=== PATIENT | female | born 1935 | race Caucasian/White ===

== ENCOUNTER → 2017-04-25 | Outpatient (CLI) | payer OTHER, MEDICARE ==
[~2017-04-25] MED LIST: AMARYL4 MG PO; AUGMENTIN 500-1 EACH PO; CARDIZEM CD240 MG PO; HYDROCODON-ACE1 EAC7 PO; KLOR-CON 1010 MEQ PO; LASIX 40 MG TAB40 M2 PO; LISINOPRIL20 MG PO; METFORMIN HCL500 MG PO; ONGLYZA5 MG PO; PREDNISONE 10 M10 MG PO; TUMS PO; VITAMIN D2000 UNIT PO; ZOCOR20 MG PO
[2017-04-25 09:35] LABS: HEMATOCRIT 37.6 % (37.0-47.0); HEMOGLOBIN 12.5 gm/dL (12.0-15.0); MCH 28.3 pg (26.0-34.0); MCHC 33.2 g/dL (28.0-37.0); MCV 85.2 fL (80.0-100.0); MPV 8.9 fl. (7.2-11.1); RBC 4.42 mil/uL (4.20-5.00); RDW-CV 15.5 % (10.5-14.5); WBC 7.7 thou/uL (4.0-11.0)
[2017-04-25 09:56] LABS: ALBUMIN 3.8 g/dL (3.4-5.0); ALKALINE PHOSPHATASE 77 U/L (46-116); ANION GAP 8 mmol/L (7-16); BUN 25 mg/dL (7-18); CALCIUM 10.2 mg/dL (8.5-10.1); CHLORIDE 103 mmol/L (98-107); CHOLESTEROL 148 mg/dL (<200); CO2 30 mmol/L (21-32); CREATININE 1.4 mg/dL (0.6-1.3); GLUCOSE 151 mg/dL (70-99); HDL CHOLESTEROL 35 mg/dL (>40); LDL CHOLESTEROL 74 mg/dL (<100); POTASSIUM 4.3 mmol/L (3.5-5.1); SERUM ASSESSMENT Clear; SGOT 19 U/L (15-37); SGPT 26 U/L (30-65); SODIUM 141 mmol/L (136-145); TC:HDL 4.2 Ratio (Not establshd); TOTAL BILIRUBIN 0.3 mg/dL (<0.1-1.0); TOTAL PROTEIN 7.1 g/dL (6.4-8.2); TRIGLYCERIDE 195 mg/dL (<150); VLDL 39 mg/dL (<40)
[2017-04-25 21:11] LABS: GLYCOHEMOGLOBIN (HGB A1C) 7.1 % (4.8-5.6)
== END ==
LOC: M.LAB 08:46
PROVIDERS: General Practice
DX: E04.2 Nontoxic multinodular goiter (principal); I10 Essential (primary) hypertension; E11.9 Type 2 diabetes mellitus without complications; E55.9 Vitamin D deficiency, unspecified

== ENCOUNTER → 2017-07-23 | Outpatient (CLI) | payer OTHER, MEDICARE | LOC: M.ULTRA 07:44 | DX: N83.202 Unspecified ovarian cyst, left side (principal); R93.8 Abnormal findings on diagnostic imaging of other specified body structures; Z91.041 Radiographic dye allergy status ==

== ENCOUNTER → 2018-01-21 | Outpatient (CLI) | payer OTHER, MEDICARE | LOC: M.RAD 09:18 | DX: C25.9 Malignant neoplasm of pancreas, unspecified (principal) ==

== ENCOUNTER → 2018-09-30 | Outpatient (CLI) | payer OTHER, MEDICARE | LOC: M.ULTRA 11:02 | DX: N94.9 Unspecified condition associated with female genital organs and menstrual cycle (principal); R93.89 Abnormal findings on diagnostic imaging of other specified body structures ==

== ENCOUNTER → 2019-02-09 | Outpatient (CLI) | payer OTHER, MEDICARE | LOC: M.LAB 08:07 | DX: R91.8 Other nonspecific abnormal finding of lung field (principal); C25.9 Malignant neoplasm of pancreas, unspecified; Z91.041 Radiographic dye allergy status ==

== ENCOUNTER 2020-08-23 07:51 | Emergency (ER) | payer OTHER, MEDICARE ==
[~2020-08-23] VITALS: Ht 165.1 cm; Wt 117.0 kg
[2020-08-23] MEDS ORDERED: BACTRIM DS TAB1 EACH PO (08:17)
[2020-08-23] MEDS ORDERED: CEPHALEXIN500 MG PO (08:17)
[2020-08-23 08:37] VITALS: BP 135/87
== END 2020-08-23 08:39 | disposition home or self-care (01) ==
LOC: M.ERS 07:51
DX: L03.116 Cellulitis of left lower limb (principal); I87.8 Other specified disorders of veins; I10 Essential (primary) hypertension; K21.9 Gastro-esophageal reflux disease without esophagitis; E66.9 Obesity, unspecified; Z68.41 Body mass index [BMI] 40.0-44.9, adult; Z88.1 Allergy status to other antibiotic agents; Z91.041 Radiographic dye allergy status; Z85.07 Personal history of malignant neoplasm of pancreas

== ENCOUNTER → 2020-09-09 | Outpatient (CLI) | payer OTHER, MEDICARE ==
[~2020-09-09] MED LIST changes: +BACTRIM DS TAB1 EACH PO; +CEPHALEXIN500 MG PO
== END ==
LOC: M.ULTRA 10:21
PROVIDERS: ATTEND Radiology Radiation Oncology
DX: N83.8 Other noninflammatory disorders of ovary, fallopian tube and broad ligament (principal); N83.292 Other ovarian cyst, left side; R93.89 Abnormal findings on diagnostic imaging of other specified body structures

== ENCOUNTER → 2020-10-21 | Outpatient (CLI) | payer OTHER, MEDICARE | LOC: M.ULTRA 10:20 | PROVIDERS: ATTEND Urology | DX: N13.30 Unspecified hydronephrosis (principal) ==

== ENCOUNTER → 2020-11-09 | Outpatient (CLI) | payer OTHER, MEDICARE | LOC: M.CT 09:00 | PROVIDERS: ATTEND Urology | DX: N20.0 Calculus of kidney (principal); R91.1 Solitary pulmonary nodule; E27.8 Other specified disorders of adrenal gland; K80.10 Calculus of gallbladder with chronic cholecystitis without obstruction; N85.00 Endometrial hyperplasia, unspecified; N83.8 Other noninflammatory disorders of ovary, fallopian tube and broad ligament ==

== ENCOUNTER 2021-03-03 08:15 | Emergency (ER) | payer OTHER, MEDICARE ==
[~2021-03-03] VITALS: Ht 165.1 cm; Wt 116.1 kg
[2021-03-03 09:03] LABS: ABSOLUTE LYMPHOCYTES 0.4 thou/uL (0.8-5.3); ABSOLUTE NEUTROPHILS 6.3 thou/uL (1.6-8.1); BASOPHILS 0.6 %; EOSINOPHILS 0.3 %; HEMATOCRIT 37.4 % (37.0-47.0); HEMOGLOBIN 12.2 gm/dL (12.0-15.0); LYMPHOCYTES 5.5 %; MCHC 32.6 g/dL (28.0-37.0); MCV 82.7 fL (80.0-100.0); MONOCYTES 13.3 %; MPV 8.5 fl. (7.2-11.1); NUCLEATED RBCS 0 /100WBC; PLATELET COUNT* 251 thou/uL (150-400); POLYS 80.3 %; RBC 4.52 mil/uL (4.20-5.00); RDW-CV 18.5 % (10.5-14.5); WBC 7.8 thou/uL (4.0-11.0)
[2021-03-03 09:13] LABS: CALCIUM 9.8 mg/dL (8.5-10.1); CREATININE 1.6 mg/dL (0.6-1.3); POTASSIUM 4.7 mmol/L (3.5-5.1)
[2021-03-03 09:24] LABS: ALBUMIN 3.2 g/dL (3.4-5.0); TOTAL BILIRUBIN 0.4 mg/dL (<0.1-1.0); TOTAL PROTEIN 6.5 g/dL (6.4-8.2)
[2021-03-03] MEDS ORDERED: AMBIEN 5 MG TABL5 M1 PO (10:28)
[2021-03-03 10:36] VITALS: BP 121/70
--- NOTE | 2021-03-03 10:51 | EKG ---
[place] [address] ELECTROCARDIOGRAM REPORT Name: DORIAN GUARDADO Room: [facility]#: [id number] Admission: 03/03/21 Attend Phys: Discharge: 03/03/21 Date of : 39 Date of Service: 03/03/21 0832 Report #: [id number] THIS REPORT FOR: //name// [facility] ED Test Date: 2021-03-03 Test Time: 08:32:30 Pat Name: DORIAN GUARDADO Department: Room: Gender: F Party Planner: : 1935 Requested By: Pankaj Holt Order Number: [id number] MD: Christopher Black Measurements Intervals [place] Rate: 146 P: 107 AK: 98 QRS: 34 QRSD: 87 T: 249 QT: 273 QTc: 426 Interpretive Statements Supraventricular tachycardia Repolarization abnormality, prob rate related Compared to ECG 11/19/2016 08:47:15 Early repolarization now present Sinus tachycardia no longer present Electronically Signed On 03-03-2021 10:51:15 [employer] by Christopher Black [email or web address] <ELECTRONICALLY SIGNED> By: Christopher Black MD, FAC 03/03/21 1051 0832 Christopher Black MD, [facility] /EPI
== END 2021-03-03 10:36 | disposition home or self-care (01) ==
LOC: M.ERS 08:15
PROVIDERS: Family Medicine
DX: R53.83 Other fatigue (principal); R00.0 Tachycardia, unspecified; I10 Essential (primary) hypertension; K21.9 Gastro-esophageal reflux disease without esophagitis; E66.9 Obesity, unspecified; Z79.899 Other long term (current) drug therapy; Z88.0 Allergy status to penicillin; Z91.041 Radiographic dye allergy status

== ENCOUNTER 2021-03-26 08:52 | Emergency (ER) | payer OTHER, MEDICARE ==
[~2021-03-26] VITALS: Ht 165.1 cm; Wt 117.9 kg
[~2021-03-26 08:52] MED LIST changes: +AMBIEN 5 MG TABL5 M1 PO
[2021-03-26] MEDS ORDERED: ZESTRIL2.5 MG PO (09:30)
[2021-03-26] MEDS ORDERED: LASIX 40 MG TAB40 MG PO (09:30)
[2021-03-26 12:37] LABS: ABSOLUTE LYMPHOCYTES 0.5 thou/uL (0.8-5.3); ABSOLUTE MONOCYTES 1.3 thou/uL (0.0-1.2); BASOPHILS 0.5 %; EOSINOPHILS 0.4 %; HEMATOCRIT 37.9 % (37.0-47.0); HEMOGLOBIN 12.2 gm/dL (12.0-15.0); LYMPHOCYTES 5.6 %; MCH 26.7 pg (26.0-34.0); MCV 83.3 fL (80.0-100.0); MONOCYTES 14.3 %; MPV 7.9 fl. (7.2-11.1); NUCLEATED RBCS 0 /100WBC; PLATELET COUNT* 278 thou/uL (150-400); POLYS 79.2 %; RBC 4.56 mil/uL (4.20-5.00); RDW-CV 17.5 % (10.5-14.5); WBC 8.8 thou/uL (4.0-11.0)
[2021-03-26 12:43] LABS: CALCIUM 9.7 mg/dL (8.5-10.1); CREATININE 1.6 mg/dL (0.6-1.3)
[2021-03-26 12:47] LABS: ALBUMIN 2.7 g/dL (3.4-5.0); TOTAL BILIRUBIN 0.7 mg/dL (<0.1-1.0); TOTAL PROTEIN 6.6 g/dL (6.4-8.2)
[2021-03-26] MEDS ORDERED: ANUSOL-HC30 GM TOP (14:13)
[2021-03-26 14:22] VITALS: BP 102/55
== END 2021-03-26 14:23 | disposition home or self-care (01) ==
LOC: M.ERS 08:52
PROVIDERS: Physician Assistant
DX: K64.4 Residual hemorrhoidal skin tags (principal); I10 Essential (primary) hypertension; K21.9 Gastro-esophageal reflux disease without esophagitis; E66.9 Obesity, unspecified; Z98.890 Other specified postprocedural states; Z85.07 Personal history of malignant neoplasm of pancreas; Z79.899 Other long term (current) drug therapy; Z88.1 Allergy status to other antibiotic agents; Z91.041 Radiographic dye allergy status; Z68.41 Body mass index [BMI] 40.0-44.9, adult

== ENCOUNTER 2021-04-25 22:19 | Emergency (ER) | payer OTHER, MEDICARE ==
[~2021-04-25] VITALS: Ht 162.6 cm; Wt 130.9 kg
[~2021-04-25 22:19] MED LIST changes: +ANUSOL-HC30 GM TOP; +LASIX 40 MG TAB40 MG PO; +ZESTRIL2.5 MG PO
== END 2021-04-25 22:21 ==
LOC: M.ERS 22:19
DX: I46.9 Cardiac arrest, cause unspecified (principal); I10 Essential (primary) hypertension; K21.9 Gastro-esophageal reflux disease without esophagitis; Z88.1 Allergy status to other antibiotic agents; Z79.899 Other long term (current) drug therapy